=== PATIENT | male | born 1925 | race Caucasian/White ===

== ENCOUNTER 2016-09-19 18:46 | Inpatient (IN) | payer MEDICARE, OTHER ==
[~2016-09-19] VITALS: Ht 162.6 cm; Wt 58.5 kg
[~2016-09-19 18:46] MED LIST: AMLO5TAB4 PO; ASCO500C7 PO; ATOR40TA68 PO; CLOP75TA27 PO; DRON400T2 PO; OMEP40CA3 PO; TRAM50TA2 PO; TRIA1CAP PO
[2016-09-19] MEDS ORDERED: ONDANSETRON 4 MG INJ IV STA (19:29)
[2016-09-19] MEDS ORDERED: SOD CHLORIDE 0.9% 1,000 ML IV STA (19:29)
[2016-09-19] MEDS ORDERED: FERR325T17 PO (19:33)
--- NOTE | 2016-09-19 19:39 | ERA ---
ER Documentation Chief Complaint Date/Time DATE: 09/19/16 TIME: 19:37 Chief Complaint abd pain/vomiting/diarrhea x 1 day HPI 89-year-old male who presents emergency room with nausea vomiting and abdominal pain since this morning. History provided by patient and family using an diesel locomotive firer. The patient describes nonbloody nonbilious emesis, loose watery stools, cramping epigastric dominant discomfort occasionally radiating to the right lower quadrant. Symptoms are described as moderate. No recent travel, sick contacts, antibiotics. No abdominal surgical history. ROS All systems reviewed and are negative except as per history of present illness. Medications Home Meds Active Scripts Ondansetron (Ondansetron Odt) 4 Mg Tab.rapdis, 4 MG PO Q6H Y for NAUSEA AND/OR VOMITING, #30 TAB Prov:ADELITA HUGHES MD 09/19/16 Reported Medications Ferrous Gluconate (Ferrous Gluconate) 324 Mg Tablet, 324 MG PO DAILY, TAB 09/19/16 Ascorbic Acid* (Vitamin C*) 500 Mg Capsule.sa, 500 MG PO DAILY, CAP 12/07/15 Clopidogrel Bisulfate (Clopidogrel) 75 Mg Tablet, 75 MG PO DAILY, TAB 04/03/15 Atorvastatin* (Atorvastatin*) 40 Mg Tablet, 40 MG PO HS, TAB 04/03/15 Triamterene-HCTZ* (Triamterene-HCTZ*) 37.5 - 25 Mg Capsule, 1 CAP PO DAILY, CAP 11/01/14 Amlodipine Besylate* (Norvasc*) 5 Mg Tablet, 5 MG PO DAILY, TAB 11/01/14 Dronedarone Hydrochloride* (Multaq*) 400 Mg Tablet, 400 MG PO DAILY, TAB 11/01/14 Discontinued Scripts Tramadol HCl (Tramadol HCl) 50 Mg Tablet, 50 MG PO Q6, #20 TAB Prov:LEIGH WHITAKER A. DO 12/07/15 Omeprazole* (Prilosec*) 40 Mg Capsule.dr, 40 MG PO DAILY, #30 CAP Prov:LEVON WHITAKERSTJORGES A. DO 12/07/15 Allergies Allergies: Coded Allergies: No Known Drug Allergy (Verified Allergy, Mild, 09/19/16) PMhx/Soc History of Surgery: Yes (see EMR) Anesthesia Reaction: No Hx Neurological Disorder: No Hx Respiratory Disorders: No Hx Cardiac Disorders: Yes (HTN, HYPERLIPIDEMIA) Hx Psychiatric Problems: No Hx Miscellaneous Medical Probl: Yes (HTN, dyslipidemia, A-Fib) Hx Alcohol Use: No Hx Substance Use: No Hx Tobacco Use: No FmHx Family History: No diabetes Physical Exam Vitals Vital Signs Date Time Temp Pulse Resp B/P Pulse Ox O2 Delivery O2 Flow Rate FiO2 09/19/16 18:51 98.7 66 20 120/65 95 Physical Exam General: Well developed, well nourished, no acute distress Head: Normocephalic, atraumatic. Eyes: Pupils equally reactive, EOM intact ENT: Moist mucous membranes Neck: Supple, no lymphadenopathy Respiratory: Lungs clear bilaterally, no distress Cardiovascular: RRR, no murmurs, rubs, or gallops Abdominal: Soft, mild reproducible epigastric tenderness without pulsatile mass. Subtle tenderness in the right lower quadrant near McBurney's point but no rebound or guarding, no inguinal hernia, : No inguinal hernia, no focal testicular tenderness or swelling MSK: No edema, no unilateral swelling, 5/5 strength Neurologic: Alert and oriented, moving all extremities, normal speech, no focal weakness, no cerebellar signs Skin: No rash Psych: Normal mood Result Diagram: 09/19/16195509/19/161955 Results 24 hrs Laboratory Tests Test 09/19/16 19:56 White Blood Count 8.710^3/ul Red Blood Count 4.4510^6/ul Hemoglobin 14.2g/dl Hematocrit 43.0% Mean Corpuscular Volume 96.6fl Mean Corpuscular Hemoglobin 31.9pg Mean Corpuscular Hemoglobin Concent 33.0g/dl Red Cell Distribution Width 13.3% Platelet Count 06881^3/UL Mean Platelet Volume 9.1fl Prothrombin Time 14.1Sec Prothrombin Time Ratio 1.1 INR International Normalized Ratio 1.09 Activated Partial Thromboplast Time 26.4Sec Sodium Level 139mmol/L Potassium Level 2.8mmol/L Chloride Level 103mmol/L Carbon Dioxide Level 24mmol/L Anion Gap 15 Blood Urea Nitrogen 23mg/dl Creatinine 0.95mg/dl Glucose Level 159mg/dl Calcium Level 8.0mg/dl Total Bilirubin 0.4mg/dl Direct Bilirubin 0.00mg/dl Indirect Bilirubin 0.4mg/dl Aspartate Amino Transf (AST/SGOT) 26IU/L Alanine Aminotransferase (ALT/SGPT) 22IU/L Alkaline Phosphatase 107IU/L Total Protein 7.0g/dl Albumin 3.5g/dl Globulin 3.50g/dl Albumin/Globulin Ratio 1.00 Lipase 349U/L Current Medications Medications (Trade) Dose Ordered Sig/Alex Route PRN Reason Start Time Stop Time Status Last Admin Dose Admin Sodium Chloride (NS) 1,000 ml @ 1,000 mls/hr Q1H STAT IV 09/19/16 19:29 09/19/16 20:28 DC 09/19/16 20:02 Ondansetron HCl (Zofran Inj) 4 mg ONCE STAT IV 09/19/16 19:29 09/19/16 19:30 DC 09/19/16 20:01 Morphine Sulfate (morphine) 2 mg ONCE ONCE IV 09/19/16 20:00 09/19/16 20:01 DC 09/19/16 20:01 Potassium Chloride (Potassium Chloride Pwd/Soln) 40 meq ONCE ONCE PO 09/19/16 21:00 09/19/16 21:01 09/19/16 20:46 Procedures/MDM EKG, MONITORS, & DIAGNOSTIC IMAGING: CT abdomen and pelvis: PENDING LAB INTERPRETATION: No leukocytosis, slight hypokalemia, no evidence of hepatobiliary obstruction MEDICAL DECISION MAKING: The patient presents with nausea vomiting diarrhea and abdominal pain. This is most likely viral process however given the patient's age, the patient will benefit from further diagnostic imaging and laboratory testing given high likelihood of acute intra-abdominal process. The patient does have some mild tenderness the right lower abdomen which is the reason concern for possible appendicitis. CT imaging warranted. IV fluids and pain medication provided. No evidence of acute aortic process. ER COURSE: The patient's potassium has been repleted orally. The patient has no leukocytosis. CT imaging is pending at the time of signout. The patient is endorsed to the oncoming provider. The patient will have a p.o. challenge. I would have a low threshold for hospitalization given this patient's age however he does appear to be well in the emergency department. If the patient's CAT scan is negative, the patient tolerates oral intake and continues to be well- appearing I could see discharged home with Zofran and p.o. trial. But again, low threshold for hospitalization. This was endorsed to the oncoming provider for reevaluation. I kept the patient and/or family informed of laboratory and diagnostic imaging results throughout the emergency room course. DISPOSITION PLAN: Pending CT imaging and repeat evaluation by Dr. Saravia Departure Diagnosis: Primary Impression: Abdominal pain Qualified Code: R10.84 - Generalized abdominal pain Additional Impressions: Nausea vomiting and diarrhea Hypokalemia Condition: Stable ADELITA HUGHES MD Sep 19, 2016 19:39
[2016-09-19] MEDS ORDERED: morphine 2 MG INJ IV ONE (20:00)
[2016-09-19 20:08] LABS: ADD SCAN DIFF NO
[2016-09-19 20:11] LABS: ABNORMAL IP MESSAGE 1; HEMOGLOBIN 14.2 g/dl (14.0-18.0); MEAN CORPUSCULAR HEMOGLOBIN 31.9 pg (29.0-33.0); MEAN CORPUSCULAR VOLUME 96.6 fl (82.0-101.0); MEAN PLATELET VOLUME 9.1 fl (7.4-10.4); PLATELET COUNT 263 10^3/UL (140-415); RED BLOOD COUNT 4.45 10^6/ul (4.70-6.10); RED CELL DISTRIBUTION WIDTH 13.3 % (11.5-14.5); WHITE BLOOD COUNT 8.7 10^3/ul (4.8-10.8)
[2016-09-19 20:22] LABS: INR 1.09; PROTIME 14.1 Sec (12.2-14.2); PT RATIO 1.1
[2016-09-19 20:23] LABS: PARTIAL THROMBOPLASTIN TIME 26.4 Sec (25.0-35.0)
[2016-09-19 20:28] LABS: ALBUMIN 3.5 g/dl (3.3-4.9)
[2016-09-19 20:31] LABS: BILIRUBIN,INDIRECT 0.4 mg/dl (0-1.1); BILIRUBIN,TOTAL 0.4 mg/dl (0.2-1.3); CREATININE 0.95 mg/dl (0.61-1.24)
[2016-09-19 20:40] LABS: POTASSIUM 2.8 mmol/L (3.5-5.1)
[2016-09-19] MEDS ORDERED: ONDA4TAB14 PO (20:42)
[2016-09-19] MEDS ORDERED: POTASSIUM CHLORIDE 20 MEQ POWDER FOR ORAL SOLN PO ONE (21:00)
[2016-09-19 21:10] LABS: LYMPHOCYTES # 0.4 10^3/ul (0.8-2.9); MONOCYTE # 0.3 10^3/ul (0.3-0.9); NEUTROPHIL # 7.5 10^3/ul (1.6-7.5)
[2016-09-19 21:11] LABS: ANISOCYTOSIS OCCASIONAL; PLATELET ESTIMATE PLT APPEAR ADEQUATE
--- NOTE | 2016-09-19 22:24 | RADRPT ---
PROCEDURE: CT abdomen and pelvis without contrast. CLINICAL INDICATION: Abdominal pain TECHNIQUE: CT scan of the abdomen and pelvis without contrast was performed. Sagittal and coronal reformatted images were obtained from the axial source images. CTDI = 5.80 mGy; DLP = 356.63 mGy-cm COMPARISON: CT 08/26/2013 FINDINGS: Visualized lower thorax: The visualized heart is markedly enlarged. Some linear areas of scarring in the inferior lingula and right lower lobe are similar to the prior study without evidence of infi ltrate, dependent right lower lobe subsegmental atelectasis is present. There is no evidence for pl eural effusion. Liver, gallbladder, pancreas and spleen: The liver is normal and size, contour and attenuation. Th ere is no evidence for a liver mass or ductal dilatation. Incidental punctate granulomatous calcific ations of the right hepatic lobe are again noted. The gallbladder is unremarkable. No common bile d uct abnormality is demonstrated. The pancreas is unremarkable. The spleen is normal in size. Adrenal glands and genitourinary system: The adrenal glands are normal bilaterally. A tiny 1 mm non obstructing left lower pole renal calculus is present, more conspicuous than on the previous study. There is no hydronephrosis on either side. Multiple renal cysts are again visualized the largest p osteriorly on the left measures an estimated 5.5 cm. The ureters are unremarkable. No urinary blad nurys abnormality is demonstrated. Prostate gland enlargement is again noted the volume estimated at 64 cc. The visualized scrotum demonstrates right larger than left simple hydroceles similar to the previous exam. Small fat-containing bilateral inguinal hernias are again noted. Gastrointestinal system: Fluid filled dilatation of the distal esophagus is demonstrated. The stom ach now appears inverted with distension and an appearance concerning for organoaxial volvulus, prev iously the abnormality was a hiatal hernia but now the more distal stomach appears above the diaphra gm with distension of the gastric fundus and gas/fluid level Below the diaphragm the stomach is dil ated with a gas/fluid level. Fluid-filled loop of prominent proximal spinal bowel measures approxim ately 3 cm in caliber and suggests an ileus pattern without complete bowel obstruction. The appendi x and surrounding fat are within the limits of normal. The colon shows no evidence for wall thicken ing or acute abnormality. There is no evidence for colitis or diverticulitis. Peritoneum, retroperitoneum, lymph nodes and vessels: The abdominal aorta is normal in caliber. The re is moderate aortic and iliac system atherosclerotic calcification. The inferior vena cava is unr emarkable. There is no evidence for adenopathy or mass. There is no ascites. No pneumoperitoneum i s demonstrated. Osseous structures and musculoskeletal findings: There is no fracture, lytic or blastic lesion. Inc idental degenerative anterolisthesis at L4-5 and disk narrowing at L5-S1 is noted as is a deminerali zation No muscular abnormality or soft tissue pathology is present. RPTAT:HJJR IMPRESSION: 1. 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 Results are discussed by telephone with emergency room physician Dr. Basilio at 22:23 . 2. Proximal and mid small bowel ileus without small bowel obstruction. 3. No evidence of pneumoperitoneum or ascites. 4. Incidental nonobstructing left lower pole renal calculus and bilateral renal cysts. 5. Stable prostatomegaly. 6. Incidental simple bilateral hydroceles again noted. 7. Physician Robin Date Time Electronically viewed and signed by Physician Robin on 09/19/2016 22:23 JR/
[2016-09-19] MEDS ORDERED: ONDANSETRON 4 MG INJ IV PRN (23:00)
[2016-09-19] MEDS ORDERED: ACETAMINOPHEN 325 MG TAB PO PRN (23:00)
[2016-09-19] MEDS ORDERED: AMPICILLIN/SULB 3 GM/NS (PMX) 100 ML IVPB ONE (23:00)
[2016-09-19 23:10] VITALS: TEMP 98.3
[2016-09-19 23:56] LABS: ADD UMIC NO; URINE BILIRUBIN (Dip) NEGATIVE (NEGATIVE); URINE BLOOD (Dip) NEGATIVE (NEGATIVE); URINE COLOR YELLOW (YELLOW); URINE GLUCOSE (Dip) NEGATIVE (NEGATIVE); URINE KETONES (Dip) NEGATIVE (NEGATIVE); URINE LEUKOCYTE ESTERASE (Dip) NEGATIVE (NEGATIVE); URINE NITRITE (Dip) NEGATIVE (NEGATIVE); URINE TOTAL PROTEIN (Dip) NEGATIVE (NEGATIVE); URINE UROBILINOGEN (Dip) 0.2 E.U./dL (0.1-1.0)
[2016-09-20] VITALS (10 sets, daily range): BP systolic 106–162; BP diastolic 59–74; PULSE 72–79; RESP 16–23; Ht 162.6 cm; Wt 58.5 kg
[2016-09-20] MEDS ORDERED: LORAZEPAM 2 MG INJ IV PRN (02:00)
[2016-09-20] MEDS: DEXTROSE 5%-0.45% NACL 1,000 ML IV SCH ×2 (02:39→21:34)
[2016-09-20] MEDS ORDERED: POTASSIUM CHLORIDE 30 MEQ in SOD CHLORIDE 0.9% 150 ML IVPB ONE (06:00)
[2016-09-20 06:15] LABS: ADD SCAN DIFF NO
[2016-09-20 06:38] LABS: BASOPHILS % 0.2 % (0.0-2.0); HEMOGLOBIN 12.9 g/dl (14.0-18.0); RED CELL DISTRIBUTION WIDTH 13.4 % (11.5-14.5)
[2016-09-20 06:43] LABS: MAGNESIUM 1.7 mg/dl (1.7-2.5); PHOSPHORUS 2.1 mg/dl (2.5-4.9)
[2016-09-20 06:45] LABS: EOSINOPHILS # 0.1 10^3/ul (0.0-0.5); HEMATOCRIT 39.4 % (42.0-52.0); LYMPHOCYTES # 0.7 10^3/ul (0.8-2.9); LYMPHOCYTES % 10.3 % (15.0-51.0); MEAN CORPUSCULAR HEMOGLOBIN 32.1 pg (29.0-33.0); MEAN CORPUSCULAR HGB CONC 32.7 g/dl (32.0-37.0); MEAN PLATELET VOLUME 9.4 fl (7.4-10.4); MONOCYTE # 0.8 10^3/ul (0.3-0.9); MONOCYTES % 11.8 % (0.0-11.0); NEUTROPHIL # 4.9 10^3/ul (1.6-7.5); NEUTROPHILS % 75.5 % (39.0-77.0); PLATELET COUNT 231 10^3/UL (140-415); RED BLOOD COUNT 4.02 10^6/ul (4.70-6.10); WHITE BLOOD COUNT 6.5 10^3/ul (4.8-10.8)
--- NOTE | 2016-09-20 06:55 | HP ---
DATE OF ADMISSION: 09/19/2016 CHIEF COMPLAINT: Abdominal pain, vomiting, and diarrhea. HISTORY OF PRESENT ILLNESS: The patient is an 89-year-old male with a history of hypertension, afib , dyslipidemia, right pleural effusion, pleural based mass, status post VATS decortication, who pres ented to the emergency department with the above stated chief complaint. Symptoms have been going o n for 1 day. The abdominal pain is diffuse but mainly located in the epigastric and in the right si de of his abdomen. Vomiting described as nonbloody and nonbilious. When he presented to the ER, vi tals were stable. Laboratory value shows potassium of 2.8, lipase 249. CT abdomen and pelvis witho ut contrast shows inverted and dilated stomach concerning for gastric volvulus. Also noted was a pr oximal and mid small bowel ileus without small bowel obstruction. Consult was placed to Dr. Dong, the on-call surgery. REVIEW OF SYSTEMS: A 12-point review of systems was performed and negative except as in the HPI. PAST MEDICAL HISTORY: As per HPI. PAST SURGICAL HISTORY: VATS decortication SOCIAL HISTORY: No reported history of tobacco, alcohol, or illicit drug use. ALLERGIES: NO KNOWN DRUG ALLERGIES. HOME MEDICATIONS: 1. Plavix. 2. Ferrous sulfate. 3. Norvasc. 4. Lipitor. 5. Multaq. 6. Triamterene/hydrochlorothiazide. 7. Zofran. 8. Vitamin C. PHYSICAL EXAMINATION VITAL SIGNS: Stable. GENERAL: The patient lying in bed in no acute distress, sleepy but arousable. HEENT: No obvious head deformity. Pupils are reactive to light. Extraocular muscles intact. CARDIOVASCULAR: Regular rate and rhythm. No extra heart sounds. LUNGS: Slightly decreased breath sounds at the bases. ABDOMEN: There is tenderness to deep palpation mainly in the epigastric area and to some extent in the right side of his abdomen with no guarding, no rigidity, no rebound tenderness. EXTREMITIES: No edema. NEUROLOGIC: No focal deficits. LABORATORY DATA: Pertinent positives as mentioned in HPI. IMAGING: CT abdomen and pelvis with results as mentioned in the HPI. IMPRESSION: 1. Gastric volvulus. 2. Abdominal pain, most likely secondary to above. 3. History of hypertension. Blood pressure within goal. 4. History of atrial fibrillation, currently in sinus. 5. History of dyslipidemia. 6. History of VATS decortication. 7. Hypokalemia. PLAN: We will keep n.p.o. with IV fluid. We will provide pain medication and antiemetics as needed . Currently, he is awaiting surgical evaluation. Until then, we will hold his home medications. W e will replace his potassium, and we will correct electrolytes as needed. Dictated By: JAQUI LACY/YULI Conf#: [id number] DID#: [id number]
[2016-09-20 07:17] LABS: ALBUMIN 2.9 g/dl (3.3-4.9)
[2016-09-20 07:18] LABS: POTASSIUM 3.5 mmol/L (3.5-5.1)
[2016-09-20 07:20] LABS: ALBUMIN/GLOBULIN RATIO 0.96; BILIRUBIN,INDIRECT 0.4 mg/dl (0-1.1); BILIRUBIN,TOTAL 0.4 mg/dl (0.2-1.3); CREATININE 0.85 mg/dl (0.61-1.24); TOTAL PROTEIN 5.9 g/dl (6.1-8.1)
[2016-09-20 07:21] LABS: CALCIUM 7.3 mg/dl (8.4-10.2)
[2016-09-20] MEDS ORDERED: CEFAZOLIN 1 GM/50 ML (PMX) 50 ML IVPB ONE (10:00)
--- NOTE | 2016-09-20 10:14 | CONS ---
DATE OF ADMISSION: 09/19/2016 DATE OF CONSULTATION: TYPE OF CONSULTATION: Surgical REASON FOR CONSULTATION: Gastric volvulus. HISTORY OF PRESENT ILLNESS: The patient is an 89-year-old gentleman who was admitted to the emergen cy room with a 1-day history of abdominal pain associated with nonbilious emesis and watery stools. A CT scan showed that the patient had an inverted dilated stomach of concern for organoaxial gastri c volvulus. This was not seen on the patient's previous CT scan. The patient states that since adm ission, he feels markedly improved and has no further abdominal pain. PAST MEDICAL HISTORY: No previous abdominal surgeries. REVIEW OF SYSTEMS: HEENT: Unremarkable. PULMONARY: No history of pneumonia or shortness of breath. CARDIAC: No history of chest pain, OH or arrhythmia. ABDOMEN: As in the HPI. OUTPATIENT MEDICATIONS: Outlined in the chart. ALLERGIES: NONE. PHYSICAL EXAMINATION: GENERAL: The patient is an alert, oriented 89-year-old gentleman, who is in no acute distress. HEENT: Within normal limits. LUNGS: Clear. HEART: Regular rhythm. ABDOMEN: Scaphoid, flat and nontender. EXTREMITIES: Unremarkable. LABORATORY DATA: The patient's hematocrit is 43 with a white count of 8700. This morning, the whit e count is 6500 without left shift. BUN, glucose, electrolytes this morning are unremarkable. INR is 1.09. CT findings as noted above. IMPRESSION: Gastric volvulus noted on CT. The patient's symptoms have defervesced since admission and he feels well overall. His abdominal examination is benign. My recommendation is that the patient undergo upper GI endoscopy and with that the possibility of pl acing a PEG to secure the stomach to the anterior abdominal wall. Further recommendations will be f orthcoming based on the patient's further workup and clinical course. Dictated By: ANNALISA ESTEVEZ/YULI Conf#: [id number] DID#: [id number]
[2016-09-20] MEDS ORDERED: CEFAZOLIN 2 GM/50 ML (PMX) 50 ML IVPB ONE (11:22)
[2016-09-20] MEDS ORDERED: FENTAnyl 50 MCG/ML VIAL ONE (11:49)
[2016-09-20] MEDS ORDERED: PROPOFOL 20 ML ONE (11:49)
--- NOTE | 2016-09-20 11:49 | CONS ---
Date/Time of Note Date/Time of Note DATE: 09/20/16 TIME: 11:49 Assessment/Plan Assessment/Plan Additional Assessment/Plan Assessment: * Recurrent gastric volvulus/episodic nausea and vomiting * History of hypertension * History of atrial fibrillation on Plavix * History of dyslipidemia * History of right pleural-based mass post VATS decortication Plan: * EGD plus PEG. Patient and daughter were explained the procedure in detail including risks, benefits and alternatives. The fact that the gastrostomy tube will not be necessarily used for nutrition and will serve as an anchor to prevent further episodes of torsion of the stomach. They are agreeable. , Consultation Date/Type/Reason Admit Date/Time Sep 19, 2016 at 22:44 Date of Consultation: Sep 20, 2016 Type of Consultation: Gastroenterology Reason for Consultation * Recurrent nausea and vomiting likely related to recurrent episodes of gastric volvulus Hx of Present Illness 89-year-old [place]ian-speaking male who presented to the emergency room with complaints of persistent abdominal pain abdominal distention and associated nausea and vomiting upon evaluation the patient received a CT of the abdomen that showed evidence of gastric volvulus. On specific questioning the patient describes similar symptoms occurring almost on a daily basis what he eats, feels significantly distended, develops objective abdominal distention this is followed by vomiting and resolution of the pain and the distention. The patient has lost some weight in relationship to these events but is unable to quantify. Given the findings in CT and the history which appears to represent recurrent episodes of torsion or volvulus of the stomach we are requested to assist and consider the possibility of putting a gastrostomy tube to serve as an anchor and hopefully prevent further episodes of volvulus or torsion of the stomach. This option was explained in detail to the patient and his daughter in their [place] emphasizing the fact that the gastrostomy tube is being used as an anchor to the stomach and not necessarily as a nutritional aid. The risks, benefits and alternatives of the procedure were explained in detail. I also mentioned that the gastrostomy tube could be converted to a low-profile gastrostomy tube in about 6 weeks. They are agreeable to proceed Constitutional: improved, no complaints Eyes: no complaints ENT: no complaints Respiratory: no complaints Cardiovascular: no complaints Gastrointestinal: nausea, other (Abdominal distention), pain, vomiting Genitourinary: no complaints Musculoskeletal: no complaints Skin: no complaints Neurologic: no complaints Endocrine: no complaints Lymphatic: no complaints Psychological: nl mood/affect, no complaints Immunologic: no complaints Past Medical History * History of hypertension * History of atrial fibrillation on Plavix * History of dyslipidemia * History of right pleural-based mass post VATS decortication , Past Surgical History * VATS decortication right sided pleural-based mass Past Surgical Hx: other Family History Significant Family History: no pertinent family hx Social History Alcohol Use: sober Smoking Status: Never smoker Drug Use: none Exam/Review of Systems Vital Signs Vitals Vital Signs Date Time Temp Pulse Resp B/P Pulse Ox O2 Delivery O2 Flow Rate FiO2 09/20/16 11:44 76 18 146/69 98 Room Air 09/20/16 07:40 98.2 Intake and Output 09/19/16 09/19/16 09/20/16 15:00 23:00 07:00 Intake Total 225 ml Output Total 400 ml Balance -175 ml Exam Constitutional: alert, frail, oriented, other (Under nourished), well developed Psych: nl mood/affect, no complaints Head: atraumatic, normocephalic Eyes: EOMI, PERRL, nl conjunctiva, nl lids, nl sclera ENMT: nl external ears & nose, nl lips & teeth, nl nasal mucosa & septum Neck: non-tender, supple Respiratory: clear to auscultation, normal air movement Cardiovascular: nl pulses, regular rate and rhythm Gastrointestinal: bowel sounds, nl liver, spleen, non-tender, soft, No ascites, No distended, No firm, No hepatomegaly, No mass, No rebound or guarding, No splenomegaly, No surgical scars Musculoskeletal: nl extremities to inspection, nl gait and stance Extremities: normal pulses Neurological: LIFE SCIENCE TAXONOMIST II-XII intact, nl mental status, nl speech, nl strength Skin: nl turgor, No rash or lesions Lymph: nl lymph nodes Results Result Diagram: 09/20/1629 09/20/16528 Results 24 hrs Laboratory Tests Test 09/19/16 19:56 09/19/16 23:32 09/20/16 05:29 White Blood Count 8.7 6.5 # Red Blood Count 4.45 L 4.02 L Hemoglobin 14.2 12.9 L Hematocrit 43.0 39.4 L Mean Corpuscular Volume 96.6 98.0 Mean Corpuscular Hemoglobin 31.9 32.1 Mean Corpuscular Hemoglobin Concent 33.0 32.7 Red Cell Distribution Width 13.3 13.4 Platelet Count 263 231 Mean Platelet Volume 9.1 9.4 Neutrophils % 86.0 H 75.5 Band Neutrophils % 6.0 H Lymphocytes % 5.0 L 10.3 L Monocytes % 3.0 11.8 H Neutrophils # 7.5 4.9 Lymphocytes # 0.4 L 0.7 L Monocytes # 0.3 0.8 Platelet Estimate PLT APPEAR ADEQUATE Anisocytosis OCCASIONAL Prothrombin Time 14.1 Prothrombin Time Ratio 1.1 INR International Normalized Ratio 1.09 Activated Partial Thromboplast Time 26.4 Sodium Level 139 138 Potassium Level 2.8 *L 3.5 Chloride Level 103 104 Carbon Dioxide Level 24 27 Anion Gap 15 11 Blood Urea Nitrogen 23 H 16 Creatinine 0.95 0.85 Glucose Level 159 107 # Calcium Level 8.0 L 7.3 L Total Bilirubin 0.4 0.4 Direct Bilirubin 0.00 0.00 Indirect Bilirubin 0.4 0.4 Aspartate Amino Transf (AST/SGOT) 26 24 Alanine Aminotransferase (ALT/SGPT) 22 28 Alkaline Phosphatase 107 81 Total Protein 7.0 5.9 #L Albumin 3.5 2.9 L Globulin 3.50 H 3.00 Albumin/Globulin Ratio 1.00 0.96 Lipase 349 H Urine Color YELLOW Urine Clarity CLEAR Urine pH 5.5 Urine Specific [place] 1.020 Urine Ketones NEGATIVE Urine Nitrite NEGATIVE Urine Bilirubin NEGATIVE Urine Urobilinogen 0.2 E.U./dL Urine Leukocyte Esterase NEGATIVE Urine Hemoglobin NEGATIVE Urine Glucose NEGATIVE Urine Total Protein NEGATIVE Eosinophils % 2.0 Basophils % 0.2 Nucleated Red Blood Cells % 0.0 Eosinophils # 0.1 Basophils # 0.0 Nucleated Red Blood Cells # 0.0 Phosphorus Level 2.1 L Magnesium Level 1.7 Medications Medications Current Medications Morphine Sulfate (morphine) 3 mg Q4H PRN IV pain; Start 09/20/16 at 02:00 Ondansetron HCl (Zofran Inj) 4 mg Q6H PRN IV NAUSEA AND/OR VOMITING; Start at 02:00 Lorazepam 0.5 mg 0.5 mg Q4H PRN IV AGITATIONS; Start 09/20/16 at 02:00 Dextrose/Sodium Chloride (D5-1/2ns) 1,000 ml @ 75 mls/hr [id number] IV Last administered on 09/20/16t 02:39; Admin Dose 75 MLS/HR; Start 09/20/16 at 02:00 HARESH PAYNE MD Sep 20, 2016 11:49
--- NOTE | 2016-09-20 12:44 | GILP ---
DATE OF PROCEDURE: 09/20/2016 PROCEDURE: Esophagogastroduodenoscopy with percutaneous endoscopic gastrostomy tube placement. BRIEF HISTORY AND INDICATIONS: The patient presents with recurrent episodes of nausea and vomiting. On this occasion, he is noticed to have evidence of a gastric volvulus. The patient was originall y scheduled for a total gastrectomy; however, he spontaneously reduced and we were requested to asse ss and consider possibly putting a gastrostomy tube as an anchor to the stomach to prevent further e pisodes of torsion or volvulus. Procedure was explained in detail to the patient in his [place] lang uage, which is Romanian, and also his daughter, making it clear that the gastrostomy tube is being pl aced as an anchor and not necessarily to be used for feedings. The patient will be able to continue to eat by mouth. The gastrostomy tube will hopefully prevent further episodes of twisting or torsi on of the stomach and in case distention should occur, it would also be helpful in decompressing the stomach relatively easily. After discussing the risks, benefits and alternatives of the procedure, both the patient and his daughter are agreeable to proceed. The gastrostomy tube used was a Jamaican 20 gastrostomy tube. PREMEDICATION: Monitored anesthesia care by anesthesiologist. SURGEON: Sowmya Sanchez MD. INSTRUMENT USED: Olympus panendoscope. TECHNIQUE: After informed consent, with the patient and/or family members understanding the procedur e, its indications, potential risks and complications, including but not limited to: allergic reacti on, bleeding, perforation, infection or leakage, and after all pertinent questions were answered to the patient and/or family members satisfaction, the patient and/or family member signed witnessed in formed consent. Following this, premedication was administered slowly IV push, under careful cardiovascular and resp iratory monitoring with pulse oximetry, blood pressure and compliance monitor. Once the sedative effect was achieved the patient was place in the supine position, the panendoscope was introduced and advanced under visual guidance. Careful examination of the upper gastrointestinal tract, on insertion as well as withdrawal of the i nstrument disclosed the following findings: ESOPHAGUS: There is a moderate-sized hiatal hernia. STOMACH: Upon entrance to the stomach air was insufflated, the gastric albert distended normally. The re is mild erythema in the distal stomach. PYLORUS: The pylorus appears patent and within normal limits, with no evidence of gastric outlet obs truction. DUODENUM: The duodenal mucosa was carefully examined in the duodenal bulb as well as the second port ion of the duodenum and appears unremarkable with no evidence of duodenitis, ulcer or neoplasm. The instrument was then brought back to the stomach and the anterior wall mid-body was identified by transillumination and "finger indentation", this area was then marked in the anterior wall of the a bdomen, it was cleansed with Betadine and infiltrated with Xylocaine 1%. Following this a trocar nee dle was introduced into the gastric lumen under visual control with the endoscope, once in the gastr ic lumen a guide wire was advanced and secured with a polypectomy snare, at this point the endoscope was withdrawn bringing the guide wire out through the patients mouth. Following this a gastrostomy tube was introduced over the guide wire, with the Mando-Bethel technique without difficulty, a small incision was performed in the skin to allow easy passage of the G-tube, once the position of the gas trostomy tube was confirmed, the external stopper and connectors were installed, and a clean dressin g applied. The patient tolerated the procedure well and was transferred out of the endoscopy suite awake, and i n good condition to continue recovery under observation, feedings will started in the next 12-24h an d gastrostomy care will be instituted. IMPRESSION: 1. Moderate sized hiatal hernia. 2. Mild gastritis. 3. Post uneventful percutaneous endoscopy with gastrostomy tube placement, placement of Jamaican-20 g astrostomy tube. 4. Previous history of gastric volvulus. RECOMMENDATIONS: Oral diet will be resumed. Gastrostomy tube will not be used for feeding purposes. Dictated By: SOWMYA SANCHEZ MS/YULI Conf#: [id number] DID#: [id number] CC: SOWMYA SANCHEZ;*EndCC*
--- NOTE | 2016-09-20 14:25 | RADRPT ---
PROCEDURE: XR Abdomen. CLINICAL INDICATION: Abdomen pain. TECHNIQUE: AP supine abdomen x-ray. COMPARISON: CT scan of the abdomen and pelvis dated 09/19/2016. FINDINGS: There is gas in nondilated small bowel and colon. There is no evidence of obstruction. There is a large hiatus hernia. There are no abnormal calcifications overlying the urinary tracts. The osseus structures are unremarkable. IMPRESSION: 1. Large hiatus hernia. 2. No evidence of obstruction. RPTAT: QQ .Gregg Salazar MD, MD Date Time Electronically viewed and signed by .Gregg Salazar MD, MD on 09/20/2016 14:25 .R/
--- NOTE | 2016-09-20 14:53 | PN ---
Date/Time of Note Date/Time of Note DATE: 09/20/16 TIME: 14:48 Assessment/Plan VTE Prophylaxis VTE Prophylaxis Intervention: SCD's Lines/Catheters IV Catheter Type (from Nrs): Peripheral IV Assessment/Plan Chief Complaint/Hosp Course Assessment and plan 1. Gastric volvulus. Patient seen by blueprint developer as well as surgeon. Patient status post PEG tube placement. Does report less pain at this time. Advance diet as tolerated. 2. Essential hypertension. We'll continue on antihypertensives and adjust as needed 3. Dyslipidemia. Continue on statin medication 4. History of iron anemia. Continue on supplement 5. History of VATS with decortication. On Plavix 6. History of A. fib ablation. Remains in sinus. We'll monitor Disposition and plan: Advance diet as tolerated. Discharge when cleared by consultants Discussed plan of care with Dr. Brar Problems: Subjective 24 Hr Interval Summary Free Text/Dictation Status post PEG tube placement. Reports less pain in abdomen at this time. Exam/Review of Systems Vital Signs Vitals Vital Signs Date Time Temp Pulse Resp B/P Pulse Ox O2 Delivery O2 Flow Rate FiO2 09/20/16 13:09 98.5 75 18 162/74 95 09/20/16 12:44 Room Air Intake and Output 09/19/16 09/19/16 09/20/16 15:00 23:00 07:00 Intake Total 225 ml Output Total 400 ml Balance -175 ml Exam Constitutional: alert, oriented Psych: nl mood/affect, no complaints Head: normocephalic Eyes: nl conjunctiva Neck: non-tender, supple Respiratory: clear to auscultation Cardiovascular: regular rate and rhythm Gastrointestinal: other (PEG tube in place) Extremities: normal pulses Neurological: MANAGED CARE DIRECTOR II-XII intact, nl mental status Skin: nl turgor, No rash or lesions Results Result Diagram: 09/20/16 0529 09/20/16 0529 Results 24 hrs Laboratory Tests Test 09/19/16 19:56 09/19/16 23:32 09/20/16 05:29 White Blood Count 8.7 6.5 # Red Blood Count 4.45 L 4.02 L Hemoglobin 14.2 12.9 L Hematocrit 43.0 39.4 L Mean Corpuscular Volume 96.6 98.0 Mean Corpuscular Hemoglobin 31.9 32.1 Mean Corpuscular Hemoglobin Concent 33.0 32.7 Red Cell Distribution Width 13.3 13.4 Platelet Count 263 231 Mean Platelet Volume 9.1 9.4 Neutrophils % 86.0 H 75.5 Band Neutrophils % 6.0 H Lymphocytes % 5.0 L 10.3 L Monocytes % 3.0 11.8 H Neutrophils # 7.5 4.9 Lymphocytes # 0.4 L 0.7 L Monocytes # 0.3 0.8 Platelet Estimate PLT APPEAR ADEQUATE Anisocytosis OCCASIONAL Prothrombin Time 14.1 Prothrombin Time Ratio 1.1 INR International Normalized Ratio 1.09 Activated Partial Thromboplast Time 26.4 Sodium Level 139 138 Potassium Level 2.8 *L 3.5 Chloride Level 103 104 Carbon Dioxide Level 24 27 Anion Gap 15 11 Blood Urea Nitrogen 23 H 16 Creatinine 0.95 0.85 Glucose Level 159 107 # Calcium Level 8.0 L 7.3 L Total Bilirubin 0.4 0.4 Direct Bilirubin 0.00 0.00 Indirect Bilirubin 0.4 0.4 Aspartate Amino Transf (AST/SGOT) 26 24 Alanine Aminotransferase (ALT/SGPT) 22 28 Alkaline Phosphatase 107 81 Total Protein 7.0 5.9 #L Albumin 3.5 2.9 L Globulin 3.50 H 3.00 Albumin/Globulin Ratio 1.00 0.96 Lipase 349 H Urine Color YELLOW Urine Clarity CLEAR Urine pH 5.5 Urine Specific [place] 1.020 Urine Ketones NEGATIVE Urine Nitrite NEGATIVE Urine Bilirubin NEGATIVE Urine Urobilinogen 0.2 E.U./dL Urine Leukocyte Esterase NEGATIVE Urine Hemoglobin NEGATIVE Urine Glucose NEGATIVE Urine Total Protein NEGATIVE Eosinophils % 2.0 Basophils % 0.2 Nucleated Red Blood Cells % 0.0 Eosinophils # 0.1 Basophils # 0.0 Nucleated Red Blood Cells # 0.0 Phosphorus Level 2.1 L Magnesium Level 1.7 Medications Medications Current Medications Morphine Sulfate (morphine) 3 mg Q4H PRN IV pain; Start 09/20/16 at 02:00 Ondansetron HCl (Zofran Inj) 4 mg Q6H PRN IV NAUSEA AND/OR VOMITING; Start at 02:00 Lorazepam 0.5 mg 0.5 mg Q4H PRN IV AGITATIONS; Start 09/20/16 at 02:00 Dextrose/Sodium Chloride (D5-1/2ns) 1,000 ml @ 75 mls/hr [id number] IV Last administered on 09/20/16t 02:39; Admin Dose 75 MLS/HR; Start 09/20/16 at 02:00 Pantoprazole (Protonix Tab) 40 mg DAILY@06 PO ; Start 09/21/16 at 06:00 ANNE FAYE Sep 20, 2016 14:53
[2016-09-20] MEDS: ATORVASTATIN 40 MG TAB PO SCH (21:34)
[2016-09-20] MEDS: morphine 4 MG/ML VIAL IV PRN (21:35)
[2016-09-20] MEDS: ONDANSETRON 4 MG INJ IV PRN (21:50)
[2016-09-21] MEDS: DEXTROSE 5%-0.45% NACL 1,000 ML IV SCH ×2 (04:40→13:17)
[2016-09-21] MEDS: PANTOPRAZOLE (EC) 40 MG TAB PO SCH (06:15)
[2016-09-21 06:34] LABS: CALCIUM 8.1 mg/dl (8.4-10.2); CREATININE 0.73 mg/dl (0.61-1.24); POTASSIUM 3.5 mmol/L (3.5-5.1)
[2016-09-21 07:34] VITALS: BP 124/59; RESP 18
[2016-09-21] MEDS: AMLODIPINE 5 MG TAB PO SCH (08:59)
[2016-09-21] MEDS: FERROUS GLUCONATE (EC) 325 MG TAB PO SCH (08:59)
[2016-09-21] MEDS: DRONEDARONE HYDROCHLORIDE 400 MG TAB PO SCH (08:59)
[2016-09-21] MEDS: CLOPIDOGREL 75 MG TAB PO SCH (08:59)
[2016-09-21] MEDS: ASCORBIC ACID 500 MG TAB PO SCH (08:59)
[2016-09-21] MEDS: morphine 4 MG/ML VIAL IV PRN (09:00)
[2016-09-21] MEDS: TRIAMTERENE/HCTZ (37.5-25) CAP PO SCH (09:00)
[2016-09-21] MEDS: ONDANSETRON 4 MG INJ IV PRN (09:06)
--- NOTE | 2016-09-21 11:58 | CONS ---
Date/Time of Note Date/Time of Note DATE: 09/21/16 TIME: 11:53 Assessment/Plan Assessment/Plan Additional Assessment/Plan Assessment: * Recurrent gastric volvulus/episodic nausea and vomiting * History of hypertension * History of atrial fibrillation on Plavix * History of dyslipidemia * History of right pleural-based mass post VATS decortication * Status post EGD plus PEG placement * 1. Moderate sized hiatal hernia. * 2. Mild gastritis. * 3. Post uneventful percutaneous endoscopy with gastrostomy tube placement, placement of Cypriot-20 gastrostomy tube. Plan: * Continue p.o. intake * Gastrostomy tube will not be used for feeding purposes. * gastrostomy tube could be converted to a low-profile gastrostomy tube in about 6 weeks * Further recommendations depend on clinical course * Patient seen in collaboration Dr. Sanchez Consultation Date/Type/Reason Admit Date/Time Sep 19, 2016 at 22:44 Initial Consult Date 09/20/16 Type of Consultation: Gastroenterology 24 HR Interval Summary Free Text/Dictation Status post EGD plus PEG placement Patient tolerating p.o. intake Resolution of gastric volvulus Exam/Review of Systems Vital Signs Vitals Vital Signs Date Time Temp Pulse Resp B/P Pulse Ox O2 Delivery O2 Flow Rate FiO2 09/21/16 07:34 98.3 76 18 124/59 09/20/16 19:48 97 09/20/16 12:44 Room Air Intake and Output 09/20/16 09/20/16 09/21/16 15:00 23:00 07:00 Intake Total 615 ml 600 ml 200 ml Output Total 750 ml 640 ml Balance 615 ml -150 ml -440 ml Exam Constitutional: alert, frail, oriented, other (Under nourished), well developed Psych: nl mood/affect, no complaints Head: atraumatic, normocephalic Eyes: EOMI, PERRL, nl conjunctiva, nl lids, nl sclera ENMT: nl external ears & nose, nl lips & teeth, nl nasal mucosa & septum Neck: non-tender, supple Respiratory: clear to auscultation, normal air movement Cardiovascular: nl pulses, regular rate and rhythm Gastrointestinal: bowel sounds, nl liver, spleen, non-tender, soft, No ascites, No distended, No firm, No hepatomegaly, No mass, No rebound or guarding, No splenomegaly, No surgical scars Musculoskeletal: nl extremities to inspection, nl gait and stance Extremities: normal pulses Neurological: TIP BANDING MACHINE OPERATOR II-XII intact, nl mental status, nl speech, nl strength Skin: nl turgor, No rash or lesions Lymph: nl lymph nodes Results Result Diagram: 09/20/16 0529 09/21/16 0533 Results 24 hrs Laboratory Tests Test 09/21/16 05:33 Sodium Level 134 L Potassium Level 3.5 Chloride Level 101 Carbon Dioxide Level 28 Anion Gap 9 Blood Urea Nitrogen 10 Creatinine 0.73 Glucose Level 101 Calcium Level 8.1 L Medications Medications Current Medications Morphine Sulfate (morphine) 3 mg Q4H PRN IV pain Last administered on 09:00; Admin Dose 3 MG; Start 09/20/16 at 02:00 Ondansetron HCl (Zofran Inj) 4 mg Q6H PRN IV NAUSEA AND/OR VOMITING Last administered on 09/21/16 09:06; Admin Dose 4 MG; Start 09/20/16 at 02:00 Lorazepam 0.5 mg 0.5 mg Q4H PRN IV AGITATIONS; Start 09/20/16 at 02:00 Dextrose/Sodium Chloride (D5-1/2ns) 1,000 ml @ 75 mls/hr [id number] IV Last administered on 09/20/16 21:34; Admin Dose 75 MLS/HR; Start 09/20/16 at 02:00 Pantoprazole (Protonix Tab) 40 mg DAILY@06 PO Last administered on 09/21/16 06 :15; Admin Dose 40 MG; Start 09/21/16 at 06:00 Amlodipine Besylate (Norvasc) 5 mg DAILY PO Last administered on 09/21/16 08: 59; Admin Dose 5 MG; Start 09/21/16 at 09:00 Ascorbic Acid (Vitamin C) 500 mg DAILY PO Last administered on 09/21/16 08:59 ; Admin Dose 500 MG; Start 09/21/16 at 09:00 Atorvastatin Calcium (Lipitor) 40 mg HS PO Last administered on 09/20/16 21:34 ; Admin Dose 40 MG; Start 09/20/16 at 21:00 Clopidogrel Bisulfate (plaVIX) 75 mg DAILY PO Last administered on 09/21/16 08 :59; Admin Dose 75 MG; Start 09/21/16 at 09:00 Dronedarone (Multaq) 400 mg DAILY PO Last administered on 09/21/16 08:59; Admin Dose 400 MG; Start 09/21/16 at 09:00 Ferrous Gluconate (Fergon) 325 mg DAILY PO Last administered on 09/21/16 08:59 ; Admin Dose 325 MG; Start 09/21/16 at 09:00 Triamterene/HCTZ (Dyazide) 1 cap DAILY PO Last administered on 09/21/16 09:00 ; Admin Dose 1 CAP; Start 09/21/16 at 09:00 CHRIS RUIZ Sep 21, 2016 11:57
[2016-09-21] MEDS ORDERED: ONDA-43 PO (14:13)
--- NOTE | 2016-09-21 14:35 | PN ---
Date/Time of Note Date/Time of Note DATE: 09/21/16 TIME: 14:32 Assessment/Plan Lines/Catheters IV Catheter Type (from Nrs): Peripheral IV Assessment/Plan Chief Complaint/Hosp Course 1. Gastric volvulus s/p EGD, reduction, and PEG -medical and GI optimization -? eventual surgery > outpt follow up 2. HTN -diet/med optimization 3. Dyslipidemia -diet/med optimization 4. Anemia without evidence of active bleeding -monitor -outpt gi w/u Thank you, Problems: Subjective 24 Hr Interval Summary s/p EGD and PEG 09/20. Min pain. No n/v. No f/c. No cp/sob. No cough. No reinoso. No dizzy/visual or neuro changes. No dysuria. Exam/Review of Systems Vital Signs Vitals Vital Signs Date Time Temp Pulse Resp B/P Pulse Ox O2 Delivery O2 Flow Rate FiO2 09/21/16 07:34 98.3 76 18 124/59 09/20/16 19:48 97 09/20/16 12:44 Room Air Intake and Output 09/20/16 09/20/16 09/21/16 15:00 23:00 07:00 Intake Total 615 ml 600 ml 200 ml Output Total 750 ml 640 ml Balance 615 ml -150 ml -440 ml Exam Constitutional: alert, oriented, No distress Psych: nl mood/affect, No anxiety Head: atraumatic, normocephalic Eyes: EOMI, PERRL, nl conjunctiva, No icteric ENMT: mucosa pink and moist, nl external ears & nose Neck: non-tender, supple, No jvd Respiratory: normal air movement, No congested cough, No labored breathing Cardiovascular: regular rate and rhythm, No edema Gastrointestinal: other (PEG in place), soft, tender (min), No rebound or guarding Musculoskeletal: nl extremities to inspection, nl gait and stance, No joint tenderness Extremities: normal pulses, No calf tenderness, No cyanosis Neurological: nl mental status, nl speech, nl strength Skin: nl turgor, No diaphoresis, No rash or lesions Lymph: nl lymph nodes Results Result Diagram: 09/20/16 0529 09/21/16 0533 EFFIE MCMAHON MD Sep 21, 2016 14:35
--- NOTE | 2016-09-21 14:46 | PDOCDIS ---
Discharge Instructions DIAGNOSIS Discharge Diagnosis: 1. Gastric Volvulus 2. hypertension 3. dyslipidemia CONDITION Patient Condition: Stable HOME CARE INSTRUCTIONS: Diet Instructions: Regular FOLLOW UP/APPOINTMENTS Appointments 1. Follow up with Dr. Sowmya Sanchez in one week OTHER ORDERS: Other Orders: 1. Go to the hospital if you have worse abdominal pain ANNE FAYE Sep 21, 2016 14:46
[2016-09-21 20:16] VITALS: BP 110/58; RESP 18
[2016-09-21] MEDS: ATORVASTATIN 40 MG TAB PO SCH (20:41)
[2016-09-22] MEDS: DEXTROSE 5%-0.45% NACL 1,000 ML IV SCH ×2 (04:28→17:29)
[2016-09-22] MEDS: PANTOPRAZOLE (EC) 40 MG TAB PO SCH (05:08)
[2016-09-22 07:42] VITALS: BP 116/59; RESP 18
[2016-09-22] MEDS: TRIAMTERENE/HCTZ (37.5-25) CAP PO SCH (08:30)
[2016-09-22] MEDS: ASCORBIC ACID 500 MG TAB PO SCH (08:30)
[2016-09-22] MEDS: DRONEDARONE HYDROCHLORIDE 400 MG TAB PO SCH (08:30)
[2016-09-22] MEDS: CLOPIDOGREL 75 MG TAB PO SCH (08:31)
[2016-09-22] MEDS: FERROUS GLUCONATE (EC) 325 MG TAB PO SCH (08:31)
[2016-09-22] MEDS: AMLODIPINE 5 MG TAB PO SCH (08:31)
[2016-09-22] MEDS: ONDANSETRON 4 MG INJ IV PRN (08:44)
[2016-09-22] MEDS ORDERED: HYDR-906 PO (10:18)
--- NOTE | 2016-09-22 10:30 | PN ---
Date/Time of Note Date/Time of Note LATE ENTRY DATE: 09/21/16 Assessment/Plan VTE Prophylaxis VTE Prophylaxis Intervention: SCD's Lines/Catheters IV Catheter Type (from Nrsg): Peripheral IV Assessment/Plan Chief Complaint/Hosp Course Assessment and plan 1. Gastric volvulus. Patient seen by personal lines sales rep as well as surgeon. Patient status post PEG tube placement. does report pain with moving.. 2. Essential hypertension. We'll continue on antihypertensives and adjust as needed 3. Dyslipidemia. Continue on statin medication 4. History of iron anemia. Continue on supplement 5. History of VATS with decortication. On Plavix 6. History of A. fib ablation. Remains in sinus. We'll monitor Disposition and plan: with abd pain. reports unable to ambulate. Will get PT to evaluate. will see for home with home health vs. snf. Discussed plan of care with Dr. Duncan Problems: Subjective 24 Hr Interval Summary Free Text/Dictation reports abd pain with moving. reports unable to fully ambulate. has some notable pain with eating Exam/Review of Systems Vital Signs Vitals Vital Signs Date Time Temp Pulse Resp B/P Pulse Ox O2 Delivery O2 Flow Rate FiO2 09/22/16 07:42 98.2 81 18 116/59 95 09/20/16 12:44 Room Air Intake and Output 09/21/16 09/21/16 09/22/16 15:00 23:00 07:00 Intake Total 1080 ml 1390 ml Output Total 1000 ml 620 ml Balance 80 ml 770 ml Exam Constitutional: alert Psych: nl mood/affect Head: normocephalic Eyes: nl conjunctiva Respiratory: clear to auscultation, normal air movement Cardiovascular: regular rate and rhythm Gastrointestinal: soft, tender (tender on palpation ) Extremities: normal pulses Neurological: SUPERVISOR FEED MILL II-XII intact, nl mental status Skin: nl turgor Results Result Diagram: 09/20/16 0529 09/21/16 0533 Medications Medications Current Medications Morphine Sulfate (morphine) 3 mg Q4H PRN IV pain Last administered on 09:00; Admin Dose 3 MG; Start 09/20/16 at 02:00 Ondansetron HCl (Zofran Inj) 4 mg Q6H PRN IV NAUSEA AND/OR VOMITING Last administered on 09/22/16 08:44; Admin Dose 4 MG; Start 09/20/16 at 02:00 Lorazepam 0.5 mg 0.5 mg Q4H PRN IV AGITATIONS; Start 09/20/16 at 02:00 Dextrose/Sodium Chloride (D5-1/2ns) 1,000 ml @ 75 mls/hr [id number] IV Last administered on 09/22/16 04:28; Admin Dose 75 MLS/HR; Start 09/20/16 at 02:00 Pantoprazole (Protonix Tab) 40 mg DAILY@06 PO Last administered on 09/22/16 05 :08; Admin Dose 40 MG; Start 09/21/16 at 06:00 Amlodipine Besylate (Norvasc) 5 mg DAILY PO Last administered on 09/22/16 08: 31; Admin Dose 5 MG; Start 09/21/16 at 09:00 Ascorbic Acid (Vitamin C) 500 mg DAILY PO Last administered on 09/22/16 08:30 ; Admin Dose 500 MG; Start 09/21/16 at 09:00 Atorvastatin Calcium (Lipitor) 40 mg HS PO Last administered on 09/21/16 20:41 ; Admin Dose 40 MG; Start 09/20/16 at 21:00 Clopidogrel Bisulfate (plaVIX) 75 mg DAILY PO Last administered on 09/22/16 08 :31; Admin Dose 75 MG; Start 09/21/16 at 09:00 Dronedarone (Multaq) 400 mg DAILY PO Last administered on 09/22/16 08:30; Admin Dose 400 MG; Start 09/21/16 at 09:00 Ferrous Gluconate (Fergon) 325 mg DAILY PO Last administered on 09/22/16 08:31 ; Admin Dose 325 MG; Start 09/21/16 at 09:00 Triamterene/HCTZ (Dyazide) 1 cap DAILY PO Last administered on 09/22/16 08:30 ; Admin Dose 1 CAP; Start 09/21/16 at 09:00 ANNE FAYE Sep 22, 2016 10:29
--- NOTE | 2016-09-22 11:06 | PN ---
Date/Time of Note Date/Time of Note DATE: 09/22/16 TIME: 10:55 Assessment/Plan VTE Prophylaxis VTE Prophylaxis Intervention: SCD's Lines/Catheters IV Catheter Type (from Nrs): Peripheral IV Assessment/Plan Assessment/Plan Assessment * Nausea and vomiting episodic * Recurrent gastric volvulus resolved * EGD/PEG 09/20/2016 * 1. Moderate sized hiatal hernia. 2. Mild gastritis. 3. Post uneventful percutaneous endoscopy with gastrostomy tube placement, placement of Mozambican-20 gastrostomy tube. 4. Previous history of gastric volvulus. * History of hypertension * History of hyperlipidemia Plan * continue present management * KUB * will add Reglan 5 mg TID Assessment: * Recurrent gastric volvulus/episodic nausea and vomiting * History of hypertension * History of atrial fibrillation on Plavix * History of dyslipidemia * History of right pleural-based mass post VATS decortication Plan: * EGD plus PEG. Patient and daughter were explained the procedure in detail including risks, benefits and alternatives. The fact that the gastrostomy tube will not be necessarily used for nutrition and will serve as an anchor to prevent further episodes of torsion of the stomach. They are agreeable. , Subjective 24 Hr Interval Summary Free Text/Dictation * course reviewed with RN * patient seen and examined * complains of vomiting but tolerating milk but not liquids * EGD/PEG placement 4 * 1. Moderate sized hiatal hernia. 2. Mild gastritis. 3. Post uneventful percutaneous endoscopy with gastrostomy tube placement, placement of Mozambican-20 gastrostomy tube. 4. Previous history of gastric volvulus. Exam/Review of Systems Vital Signs Vitals Vital Signs Date Time Temp Pulse Resp B/P Pulse Ox O2 Delivery O2 Flow Rate FiO2 09/22/16 07:42 98.2 81 18 116/59 95 09/20/16 12:44 Room Air Intake and Output 09/21/16 09/21/16 09/22/16 15:00 23:00 07:00 Intake Total 1080 ml 1390 ml Output Total 1000 ml 620 ml Balance 80 ml 770 ml Exam Constitutional: alert Respiratory: clear to auscultation, diminished breath sounds Cardiovascular: regular rate and rhythm Gastrointestinal: soft, tender (mild epigastric area/PEG in placed no bleeding) Results Result Diagram: 09/20/16 0529 09/21/16 0533 Medications Medications Current Medications Morphine Sulfate (morphine) 3 mg Q4H PRN IV pain Last administered on 09:00; Admin Dose 3 MG; Start 09/20/16 at 02:00 Ondansetron HCl (Zofran Inj) 4 mg Q6H PRN IV NAUSEA AND/OR VOMITING Last administered on 09/22/16 08:44; Admin Dose 4 MG; Start 09/20/16 at 02:00 Lorazepam 0.5 mg 0.5 mg Q4H PRN IV AGITATIONS; Start 09/20/16 at 02:00 Dextrose/Sodium Chloride (D5-1/2ns) 1,000 ml @ 75 mls/hr [id number] IV Last administered on 09/22/16 04:28; Admin Dose 75 MLS/HR; Start 09/20/16 at 02:00 Pantoprazole (Protonix Tab) 40 mg DAILY@06 PO Last administered on 09/22/16 05 :08; Admin Dose 40 MG; Start 09/21/16 at 06:00 Amlodipine Besylate (Norvasc) 5 mg DAILY PO Last administered on 09/22/16 08: 31; Admin Dose 5 MG; Start 09/21/16 at 09:00 Ascorbic Acid (Vitamin C) 500 mg DAILY PO Last administered on 09/22/16 08:30 ; Admin Dose 500 MG; Start 09/21/16 at 09:00 Atorvastatin Calcium (Lipitor) 40 mg HS PO Last administered on 09/21/16 20:41 ; Admin Dose 40 MG; Start 09/20/16 at 21:00 Clopidogrel Bisulfate (plaVIX) 75 mg DAILY PO Last administered on 09/22/16 08 :31; Admin Dose 75 MG; Start 09/21/16 at 09:00 Dronedarone (Multaq) 400 mg DAILY PO Last administered on 09/22/16 08:30; Admin Dose 400 MG; Start 09/21/16 at 09:00 Ferrous Gluconate (Fergon) 325 mg DAILY PO Last administered on 09/22/16 08:31 ; Admin Dose 325 MG; Start 09/21/16 at 09:00 Triamterene/HCTZ (Dyazide) 1 cap DAILY PO Last administered on 09/22/16 08:30 ; Admin Dose 1 CAP; Start 09/21/16 at 09:00 HARESH PAYNE MD Sep 22, 2016 11:06
--- NOTE | 2016-09-22 11:51 | RADRPT ---
PROCEDURE: XR Abdomen. CLINICAL INDICATION: Abdomen pain. TECHNIQUE: AP supine abdomen x-ray. COMPARISON: 09/20/2016. FINDINGS: There is a gastrostomy tube overlying the stomach. The bowel gas pattern is normal with no evidence of obstruction. There is a large hiatus hernia. Va scular calcifications are present consistent with atherosclerosis. There are no abnormal calcifications overlying the urinary tracts. The osseus structures are unremarkable. IMPRESSION: 1. Gastrostomy tube. 2. No evidence of obstruction. 3. Large hiatus hernia. 4. Otherwise unremarkable study. RPTAT: QQ .Gregg Salazar MD, MD Date Time Electronically viewed and signed by .Gregg Salazar MD, on 09/22/2016 11:51 .R/
[2016-09-22] MEDS: METOCLOPRAMIDE 5 MG TAB PO SCH ×2 (13:23→17:13)
--- NOTE | 2016-09-22 14:45 | PN ---
Date/Time of Note Date/Time of Note DATE: 09/22/16 TIME: 14:42 Assessment/Plan VTE Prophylaxis VTE Prophylaxis Intervention: SCD's Lines/Catheters IV Catheter Type (from Nrsg): Saline Lock Urinary Cath still in place: No Assessment/Plan Chief Complaint/Hosp Course Assessment and plan 1. Gastric volvulus. Patient seen by principal clerk as well as surgeon. Patient status post PEG tube placement. does report pain with moving. states worse today and unable to tolerate liquid intake. 2. Essential hypertension. We'll continue on antihypertensives and adjust as needed 3. Dyslipidemia. Continue on statin medication 4. History of iron anemia. Continue on supplement 5. History of VATS with decortication. On Plavix 6. History of A. fib ablation. Remains in sinus. We'll monitor Disposition and plan: worse abd pain. follow up GI recs. on reglan per GI. d/c when medically stable and cleared by consultants Discussed plan of care with Dr. Duncan Problems: Subjective 24 Hr Interval Summary Free Text/Dictation reports worse abd pain at this time Exam/Review of Systems Vital Signs Vitals Vital Signs Date Time Temp Pulse Resp B/P Pulse Ox O2 Delivery O2 Flow Rate FiO2 09/22/16 07:42 98.2 81 18 116/59 95 09/20/16 12:44 Room Air Intake and Output 09/21/16 09/21/16 09/22/16 15:00 23:00 07:00 Intake Total 1080 ml 1390 ml Output Total 1000 ml 620 ml Balance 80 ml 770 ml Exam Constitutional: alert, distress (due to abd pain), oriented Psych: nl mood/affect Head: normocephalic Neck: non-tender, supple Respiratory: clear to auscultation, normal air movement Cardiovascular: nl pulses, regular rate and rhythm Gastrointestinal: other (peg tube ), tender Musculoskeletal: No swelling Extremities: normal pulses Neurological: [employer] II-XII intact, nl mental status, nl speech Results Result Diagram: 09/20/1629 09/21/16 0533 Medications Medications Current Medications Morphine Sulfate (morphine) 3 mg Q4H PRN IV pain Last administered on t 09:00; Admin Dose 3 MG; Start 09/20/16 at 02:00 Ondansetron HCl (Zofran Inj) 4 mg Q6H PRN IV NAUSEA AND/OR VOMITING Last administered on 09/22/16 08:44; Admin Dose 4 MG; Start 09/20/16 at 02:00 Lorazepam 0.5 mg 0.5 mg Q4H PRN IV AGITATIONS; Start 09/20/16 at 02:00 Dextrose/Sodium Chloride (D5-1/2ns) 1,000 ml @ 75 mls/hr [id number] IV Last administered on 09/22/16 04:28; Admin Dose 75 MLS/HR; Start 09/20/16 at 02:00 Pantoprazole (Protonix Tab) 40 mg DAILY@06 PO Last administered on 09/22/16 05 :08; Admin Dose 40 MG; Start 09/21/16 at 06:00 Amlodipine Besylate (Norvasc) 5 mg DAILY PO Last administered on 09/22/16 08: 31; Admin Dose 5 MG; Start 09/21/16 at 09:00 Ascorbic Acid (Vitamin C) 500 mg DAILY PO Last administered on 09/22/16 08:30 ; Admin Dose 500 MG; Start 09/21/16 at 09:00 Atorvastatin Calcium (Lipitor) 40 mg HS PO Last administered on 09/21/16 20:41 ; Admin Dose 40 MG; Start 09/20/16 at 21:00 Clopidogrel Bisulfate (plaVIX) 75 mg DAILY PO Last administered on 09/22/16 08 :31; Admin Dose 75 MG; Start 09/21/16 at 09:00 Dronedarone (Multaq) 400 mg DAILY PO Last administered on 09/22/16 08:30; Admin Dose 400 MG; Start 09/21/16 at 09:00 Ferrous Gluconate (Fergon) 325 mg DAILY PO Last administered on 09/22/16 08:31 ; Admin Dose 325 MG; Start 09/21/16 at 09:00 Triamterene/HCTZ (Dyazide) 1 cap DAILY PO Last administered on 09/22/16 08:30 ; Admin Dose 1 CAP; Start 09/21/16 at 09:00 ANNE FAYE Sep 22, 2016 14:44
[2016-09-22] MEDS ORDERED: MAGNESIUM HYDROXIDE 30ML CUP PO PRN (17:30)
[2016-09-22] MEDS ORDERED: BISACODYL 10 MG SUPP PR PRN (17:30)
[2016-09-22] MEDS ORDERED: LACTULOSE 30ML CUP PO PRN (17:30)
[2016-09-22 19:54] VITALS: BP 101/60; RESP 18
[2016-09-22] MEDS: ATORVASTATIN 40 MG TAB PO SCH (20:19)
[2016-09-22] MEDS: SENNA TAB PO SCH (20:19)
[2016-09-22] MEDS: DOCUSATE SODIUM 100 MG CAP PO SCH (20:19)
--- NOTE | 2016-09-22 22:11 | PN ---
Date/Time of Note Date/Time of Note DATE: 09/22/16 TIME: 22:10 Assessment/Plan Lines/Catheters IV Catheter Type (from Nrs): Saline Lock Marks in Place (from Nrs): No Assessment/Plan Chief Complaint/Hosp Course 1. Gastric volvulus s/p EGD, reduction, and PEG -medical and GI optimization -? eventual surgery > outpt follow up 2. HTN -diet/med optimization 3. Dyslipidemia -diet/med optimization 4. Anemia without evidence of active bleeding -monitor -outpt gi w/u Thank you, Problems: Subjective 24 Hr Interval Summary s/p EGD and PEG 09/20. Min pain. No n/v. No f/c. No cp/sob. No cough. No reinoso. No dizzy/visual or neuro changes. No dysuria. Exam/Review of Systems Vital Signs Vitals Vital Signs Date Time Temp Pulse Resp B/P Pulse Ox O2 Delivery O2 Flow Rate FiO2 09/22/16 19:54 98.8 81 18 101/60 94 09/20/16 12:44 Room Air Intake and Output 09/21/16 09/21/16 09/22/16 15:00 23:00 07:00 Intake Total 1080 ml 1390 ml Output Total 1000 ml 620 ml Balance 80 ml 770 ml Exam Free Text/Dictation Constitutional: alert, oriented, No distress Psych: nl mood/affect, No anxiety Head: atraumatic, normocephalic Eyes: EOMI, PERRL, nl conjunctiva, No icteric ENMT: mucosa pink and moist, nl external ears & nose Neck: non-tender, supple, No jvd Respiratory: normal air movement, No congested cough, No labored breathing Cardiovascular: regular rate and rhythm, No edema Gastrointestinal: other (PEG in place), soft, tender (min), No rebound or guarding Musculoskeletal: nl extremities to inspection, nl gait and stance, No joint tenderness Extremities: normal pulses, No calf tenderness, No cyanosis Neurological: nl mental status, nl speech, nl strength Skin: nl turgor, No diaphoresis, No rash or lesions Lymph: nl lymph nodes Results Result Diagram: 09/20/16 0529 09/21/16 0533 EFFIE MCMAHON MD Sep 22, 2016 22:11
[2016-09-22] MEDS: morphine 4 MG/ML VIAL IV PRN (22:16)
[2016-09-23] MEDS: PANTOPRAZOLE (EC) 40 MG TAB PO SCH (05:29)
[2016-09-23 06:04] LABS: ADD SCAN DIFF NO
[2016-09-23 06:14] LABS: BASOPHILS % 0.1 % (0.0-2.0); EOSINOPHILS # 0.2 10^3/ul (0.0-0.5); EOSINOPHILS % 1.9 % (0.0-7.0); HEMATOCRIT 41.5 % (42.0-52.0); HEMOGLOBIN 13.9 g/dl (14.0-18.0); LYMPHOCYTES # 1.3 10^3/ul (0.8-2.9); LYMPHOCYTES % 16.2 % (15.0-51.0); MEAN CORPUSCULAR HEMOGLOBIN 32.1 pg (29.0-33.0); MEAN CORPUSCULAR HGB CONC 33.5 g/dl (32.0-37.0); MEAN CORPUSCULAR VOLUME 95.8 fl (82.0-101.0); MEAN PLATELET VOLUME 9.3 fl (7.4-10.4); MONOCYTE # 0.8 10^3/ul (0.3-0.9); MONOCYTES % 10.7 % (0.0-11.0); NEUTROPHIL # 5.6 10^3/ul (1.6-7.5); NEUTROPHILS % 70.8 % (39.0-77.0); PLATELET COUNT 256 10^3/UL (140-415); RED BLOOD COUNT 4.33 10^6/ul (4.70-6.10); RED CELL DISTRIBUTION WIDTH 13.2 % (11.5-14.5); WHITE BLOOD COUNT 7.9 10^3/ul (4.8-10.8)
[2016-09-23 06:35] LABS: CREATININE 0.86 mg/dl (0.61-1.24)
[2016-09-23 06:47] LABS: POTASSIUM 2.8 mmol/L (3.5-5.1)
[2016-09-23 07:26] VITALS: BP 119/59; RESP 16
[2016-09-23] MEDS: DEXTROSE 5%-0.45% NACL 1,000 ML IV SCH (07:26)
[2016-09-23] MEDS: DOCUSATE SODIUM 100 MG CAP PO SCH (08:16)
[2016-09-23] MEDS: SENNA TAB PO SCH (08:16)
[2016-09-23] MEDS: DRONEDARONE HYDROCHLORIDE 400 MG TAB PO SCH (08:31)
[2016-09-23] MEDS: CLOPIDOGREL 75 MG TAB PO SCH (08:31)
[2016-09-23] MEDS: METOCLOPRAMIDE 5 MG TAB PO SCH ×2 (08:31→12:14)
[2016-09-23] MEDS: POTASSIUM CHLORIDE (SR) 20 MEQ TAB PO SCH ×2 (08:31→12:14)
[2016-09-23] MEDS: TRIAMTERENE/HCTZ (37.5-25) CAP PO SCH (08:32)
[2016-09-23] MEDS: ASCORBIC ACID 500 MG TAB PO SCH (08:32)
[2016-09-23] MEDS: AMLODIPINE 5 MG TAB PO SCH (08:32)
[2016-09-23] MEDS: FERROUS GLUCONATE (EC) 325 MG TAB PO SCH (08:33)
--- NOTE | 2016-09-23 12:48 | DS ---
Date/Time of Note Date/Time of Note DATE: 09/23/16 TIME: 12:46 Discharge Summary Admission/Discharge Info Admit Date/Time Sep 19, 2016 at 22:44 Discharge Date/Time Final Diagnosis 1. Gastric volvulus. 2. Essential hypertension. 3. Dyslipidemia. 4. History of iron anemia. 5. History of VATS with decortication. 6. History of A. fib ablation. Patient Condition: Stable Consults 1. Dr. Larry Dong 2. Dr. Sowmya Sanchez Hospital Course This is an 89-year-old male with history of hypertension, atrial ablation, dysrhythmia, right pleural effusion and pleural-based mass status post VATS procedure with decortication and valgus. Hospital secondary to reports of abdominal pain with associated nausea vomiting diarrhea. Patient reports symptoms occurred 1 day duration prior to admission. His pain was reported to be diffuse and also had nonbloody nonbilious emesis. He comes [facility] secondary to the aformentiond issues. Upon examination he had a CT scan of the abdomen that did show him to have inverted and dilated stomach concerning for gastric volvulus. He also had noted hypokalemia with potassium of 2.8. Lipase was also seen at 249. Patient was consulted by surgeon. After review by surgeon was recommended for patient to have GI consultation for placement of PEG tube to help hold anterior wall of abdomen to stomach. Patient did have procedure needed tolerated well. We did gradually advance the patient's oral diet and he did tolerate. Patient was otherwise optimized medically. He was continued on antihypertensive for his hypertension and medication refill edema. He was resumed on iron supplement. He was also noted with history of CAD and placed on Plavix. During his stay he did improve. He was instructed to follow-up with brick stacker as outpatient. Plan of care was discussed with the patient and patient verbalized understanding. The discharge patient was in stable condition Discussed plan of care with Dr. Allen Discharge process time: 40 minutes Home Meds Active Scripts Ondansetron Hcl* (Zofran*) 4 Mg Tab, 4 MG PO Q4H Y for NAUSEA AND OR VOMITING, # 30 TAB Prov:ANNE FAYE 09/21/16 Ondansetron (Ondansetron Odt) 4 Mg Tab.rapdis, 4 MG PO Q6H Y for NAUSEA AND/OR VOMITING, #30 TAB Prov:BORM, ADELITA A., MD 09/19/16 Reported Medications Ferrous Gluconate (Ferrous Gluconate) 324 Mg Tablet, 324 MG PO DAILY, TAB 09/19/16 Ascorbic Acid* (Vitamin C*) 500 Mg Capsule.sa, 500 MG PO DAILY, CAP 12/07/15 Clopidogrel Bisulfate (Clopidogrel) 75 Mg Tablet, 75 MG PO DAILY, TAB 04/03/15 Atorvastatin* (Atorvastatin*) 40 Mg Tablet, 40 MG PO HS, TAB 04/03/15 Triamterene-HCTZ* (Triamterene-HCTZ*) 37.5 - 25 Mg Capsule, 1 CAP PO DAILY, CAP 11/01/14 Amlodipine Besylate* (Norvasc*) 5 Mg Tablet, 5 MG PO DAILY, TAB 11/01/14 Dronedarone Hydrochloride* (Multaq*) 400 Mg Tablet, 400 MG PO DAILY, TAB 11/01/14 Discontinued Scripts Tramadol HCl (Tramadol HCl) 50 Mg Tablet, 50 MG PO Q6, #20 TAB Prov:LEIGH WHITAKER DO 12/07/15 Omeprazole* (Prilosec*) 40 Mg Capsule., 40 MG PO DAILY, #30 CAP Prov:LEIGH WHITAKER DO 12/07/15 Follow-up Plan CONDITION Patient Condition: Stable HOME CARE INSTRUCTIONS: Diet Instructions: Regular FOLLOW UP/APPOINTMENTS Appointments 1. Follow up with Dr. Sowmya Sanchez in one week OTHER ORDERS: Other Orders: 1. Go to the hospital if you have worse abdominal pain Pending Labs Laboratory Tests Test 09/23/16 05:01 09/23/16 05:07 Sodium Level 134mmol/L (135-144) Potassium Level 2.8mmol/L (3.5-5.1) Chloride Level 101mmol/L (97-110) Carbon Dioxide Level 29mmol/L (21-31) Anion Gap 7 (8-16) Blood Urea Nitrogen 10mg/dl (7-20) Creatinine 0.86mg/dl (0.61-1.24) Glucose Level 111mg/dl (70-220) Calcium Level 8.0mg/dl (8.4-10.2) White Blood Count 7.910^3/ul (4.8-10.8) Red Blood Count 4.3310^6/ul (4.70-6.10) Hemoglobin 13.9g/dl (14.0-18.0) Hematocrit 41.5% (42.0-52.0) Mean Corpuscular Volume 95.8fl (82.0-101.0) Mean Corpuscular Hemoglobin 32.1pg (29.0-33.0) Mean Corpuscular Hemoglobin Concent 33.5g/dl (32.0-37.0) Red Cell Distribution Width 13.2% (11.5-14.5) Platelet Count 89908^3/UL (140-415) Mean Platelet Volume 9.3fl (7.4-10.4) Neutrophils % 70.8% (39.0-77.0) Lymphocytes % 16.2% (15.0-51.0) Monocytes % 10.7% (0.0-11.0) Eosinophils % 1.9% (0.0-7.0) Basophils % 0.1% (0.0-2.0) Nucleated Red Blood Cells % 0.0/100WBC (0.0-0.0) Neutrophils # 5.610^3/ul (1.6-7.5) Lymphocytes # 1.310^3/ul (0.8-2.9) Monocytes # 0.810^3/ul (0.3-0.9) Eosinophils # 0.210^3/ul (0.0-0.5) Basophils # 0.010^3/ul (0.0-0.1) Nucleated Red Blood Cells # 0.010^3/ul (0.0-0.0) ANNE FAYE Sep 23, 2016 12:48
[2016-09-23 15:00] VITALS: BP 135/68; PULSE 75; RESP 20
--- NOTE | 2016-09-23 15:49 | PN ---
Date/Time of Note Date/Time of Note DATE: 09/23/16 TIME: 15:45 Assessment/Plan VTE Prophylaxis VTE Prophylaxis Intervention: SCD's Lines/Catheters IV [facility] (from [facility] Peripheral IV Urinary Cath still in place: No Assessment/Plan Assessment/Plan Nausea and vomiting episodic resolved * Recurrent gastric volvulus resolved * EGD/PEG 09/20/2016 * 1. Moderate sized hiatal hernia. 2. Mild gastritis. 3. Post uneventful percutaneous endoscopy with gastrostomy tube placement, placement of Maced[place]-20 gastrostomy tube. 4. Previous history of gastric volvulus. * History of hypertension * History of hyperlipidemia Plan * Stable for outpatient management * follow up in 4 weeks Subjective 24 Hr Interval Summary Free Text/Dictation * Course reviewed with RN * patient seen and examined * no abdominal pain ,vomiting nor nausea * G tube in placed * KUB 09/23/2016 * 1. Gastrostomy tube. 2. No evidence of obstruction. 3. Large hiatus hernia. 4. Otherwise unremarkable study. Exam/Review of Systems Vital Signs Vitals Vital Signs Date Time Temp Pulse Resp B/P Pulse Ox O2 Delivery O2 Flow Rate FiO2 09/23/16 07:26 98.6 73 16 119/59 94 09/20/16 12:44 Room Air Intake and Output 09/22/16 09/22/16 09/23/16 15:00 23:00 07:00 Intake Total 1330 ml 1450 ml Output Total 600 ml Balance 730 ml 1450 ml Exam Constitutional: frail Neck: supple Respiratory: clear to auscultation, normal air movement Cardiovascular: nl pulses, regular rate and rhythm Gastrointestinal: bowel sounds, non-tender, other (g tube in placed dressing dry intact), soft, No rebound or guarding Results Result Diagram: 09/23/16 0507 09/23/16 0501 Results 24 hrs Laboratory Tests Test 09/23/16 05:01 09/23/16 05:07 Sodium Level 134 L Potassium Level 2.8 *L Chloride Level 101 Carbon Dioxide Level 29 Anion Gap 7 L Blood Urea Nitrogen 10 Creatinine 0.86 Glucose Level 111 Calcium Level 8.0 L White Blood Count 7.9 # Red Blood Count 4.33 L Hemoglobin 13.9 L Hematocrit 41.5 L Mean Corpuscular Volume 95.8 Mean Corpuscular Hemoglobin 32.1 Mean Corpuscular Hemoglobin Concent 33.5 Red Cell Distribution Width 13.2 Platelet Count 256 Mean Platelet Volume 9.3 Neutrophils % 70.8 Lymphocytes % 16.2 Monocytes % 10.7 Eosinophils % 1.9 Basophils % 0.1 Nucleated Red Blood Cells % 0.0 Neutrophils # 5.6 Lymphocytes # 1.3 Monocytes # 0.8 Eosinophils # 0.2 Basophils # 0.0 Nucleated Red Blood Cells # 0.0 Medications Medications Current Medications Morphine Sulfate (morphine) 3 mg Q4H PRN IV pain Last administered on 22:16; Admin Dose 3 MG; Start 09/20/16 at 02:00 Ondansetron HCl (Zofran Inj) 4 mg Q6H PRN IV NAUSEA AND/OR VOMITING Last administered on 09/22/16 08:44; Admin Dose 4 MG; Start 09/20/16 at 02:00 Lorazepam 0.5 mg 0.5 mg Q4H PRN IV AGITATIONS; Start 09/20/16 at 02:00 Dextrose/Sodium Chloride (D5-1/2ns) 1,000 ml @ 75 mls/hr [id number] IV Last administered on 09/23/16 07:26; Admin Dose 75 MLS/HR; Start 09/20/16 at 02:00 Pantoprazole (Protonix Tab) 40 mg DAILY@06 PO Last administered on 09/23/16 05 :29; Admin Dose 40 MG; Start 09/21/16 at 06:00 Amlodipine Besylate (Norvasc) 5 mg DAILY PO Last administered on 09/23/16 08: 32; Admin Dose 5 MG; Start 09/21/16 at 09:00 Ascorbic Acid (Vitamin C) 500 mg DAILY PO Last administered on 09/23/16 08:32 ; Admin Dose 500 MG; Start 09/21/16 at 09:00 Atorvastatin Calcium (Lipitor) 40 mg HS PO Last administered on 09/22/16 20:19 ; Admin Dose 40 MG; Start 09/20/16 at 21:00 Clopidogrel Bisulfate (plaVIX) 75 mg DAILY PO Last administered on 09/23/16 08 :31; Admin Dose 75 MG; Start 09/21/16 at 09:00 Dronedarone (Multaq) 400 mg DAILY PO Last administered on 09/23/16 08:31; Admin Dose 400 MG; Start 09/21/16 at 09:00 Ferrous Gluconate (Fergon) 325 mg DAILY PO Last administered on 09/23/16 08:33 ; Admin Dose 325 MG; Start 09/21/16 at 09:00 Triamterene/HCTZ (Dyazide) 1 cap DAILY PO Last administered on 09/23/16 08:32 ; Admin Dose 1 CAP; Start 09/21/16 at 09:00 Senna (Senokot) 2 tab BID PO Last administered on 09/22/16 20:19; Admin Dose 2 TAB; Start 09/22/16 at 21:00 Docusate Sodium (Colace) 200 mg BID PO Last administered on 09/22/16 20:19; Admin Dose 200 MG; Start 09/22/16 at 21:00 Magnesium Hydroxide (Milk Of Mag) 30 ml BID PRN PO CONSTIPATION; Start at 17:30 Lactulose (Enulose) 20 gm Q6H PRN PO CONSTIPATION Last administered on 17:30; Admin Dose 20 GM; Start 09/22/16 at 17:30 Bisacodyl (Dulcolax Supp) 10 mg DAILY PRN DE CONSTIPATION; Start 09/22/16 at 17 :30 HARESH PAYNE MD Sep 23, 2016 15:49
--- NOTE | 2016-09-23 20:26 | PN ---
Date/Time of Note Date/Time of Note DATE: 09/23/16 TIME: 20:26 Assessment/Plan Lines/Catheters IV Catheter Type (from Nrs): Peripheral IV Marks in Place (from Nrs): No Assessment/Plan Chief Complaint/Hosp Course 1. Gastric volvulus s/p EGD, reduction, and PEG -medical and GI optimization -? eventual surgery > outpt follow up 2. HTN -diet/med optimization 3. Dyslipidemia -diet/med optimization 4. Anemia without evidence of active bleeding -monitor -outpt gi w/u Thank you, Late entry Problems: Subjective 24 Hr Interval Summary s/p EGD and PEG 09/20. Min pain. No n/v. No f/c. No cp/sob. No cough. No reinoso. No dizzy/visual or neuro changes. No dysuria. Exam/Review of Systems Vital Signs Vitals Vital Signs Date Time Temp Pulse Resp B/P Pulse Ox O2 Delivery O2 Flow Rate FiO2 09/23/16 15:00 75 20 135/68 95 Room Air 09/23/16 07:26 98.6 Intake and Output 09/22/16 09/22/16 09/23/16 15:00 23:00 07:00 Intake Total 1330 ml 1450 ml Output Total 600 ml Balance 730 ml 1450 ml Exam Free Text/Dictation Constitutional: alert, oriented, No distress Psych: nl mood/affect, No anxiety Head: atraumatic, normocephalic Eyes: EOMI, PERRL, nl conjunctiva, No icteric ENMT: mucosa pink and moist, nl external ears & nose Neck: non-tender, supple, No jvd Respiratory: normal air movement, No congested cough, No labored breathing Cardiovascular: regular rate and rhythm, No edema Gastrointestinal: other (PEG in place), soft, tender (min), No rebound or guarding Musculoskeletal: nl extremities to inspection, nl gait and stance, No joint tenderness Extremities: normal pulses, No calf tenderness, No cyanosis Neurological: nl mental status, nl speech, nl strength Skin: nl turgor, No diaphoresis, No rash or lesions Lymph: nl lymph nodes Results Result Diagram: 09/23/16 0507 09/23/16 0501 EFFIE MCMAHON MD Sep 23, 2016 20:26
== END 2016-09-23 15:35 | disposition home or self-care (01) | DRG 390 ==
LOC: E/R 18:46 → MS2 22:44
PROVIDERS: ADMIT Internal Medicine; ATTEND Internal Medicine
PROC: 0DJ08ZZ Inspection of Upper Intestinal Tract, Via Natural or Artificial Opening Endoscopic (ICD-10-PCS; 2016-09-20)
PROC: 0DH63UZ Insertion of Feeding Device into Stomach, Percutaneous Approach (ICD-10-PCS; principal; 2016-09-20 12:00)
DX: K56.2 Volvulus (principal); I48.91 Unspecified atrial fibrillation; D64.9 Anemia, unspecified; E87.6 Hypokalemia; K44.9 Diaphragmatic hernia without obstruction or gangrene; I10 Essential (primary) hypertension; E78.5 Hyperlipidemia, unspecified; K29.70 Gastritis, unspecified, without bleeding
CPT/HCPCS: 36415; 74000; 74176; 80048; 80053; 81003; 83690; 83735; 84100; 85025; 85610; 85730; 96374; 96375; 97116; 97162; 97530; J0295; J0690; J2270; J2405; J3010; J7030; J7042